=== PATIENT | female | born 1965 | race Caucasian/White ===

== ENCOUNTER → 2020-09-13 | Day surgery (SDC) | payer OTHER ==
[~2020-09-13] MED LIST: HCTZ12.5 MG PO; LIPITOR40 MG PO; ZESTRIL40 MG PO
== END | disposition home or self-care (01) ==
LOC: FAS 06:58
DX: Z09 Encounter for follow-up examination after completed treatment for conditions other than malignant neoplasm (principal); K52.9 Noninfective gastroenteritis and colitis, unspecified; I10 Essential (primary) hypertension; E78.00 Pure hypercholesterolemia, unspecified; E78.5 Hyperlipidemia, unspecified; G47.30 Sleep apnea, unspecified; Z86.010 Personal history of colon polyps; Z87.891 Personal history of nicotine dependence; Z79.899 Other long term (current) drug therapy